=== PATIENT | female | born 1990 | race Caucasian/White ===

== ENCOUNTER 2022-03-11 13:57 | Outpatient (CLI) | payer OTHER | END 2022-03-11 13:58 | disposition home or self-care (01) | LOC: CSHLAB 13:57 | PROVIDERS: ATTEND Obstetrics & Gynecology | DX: Z20.822 Contact with and (suspected) exposure to COVID-19 (principal) | CPT/HCPCS: 87811 ==

== ENCOUNTER 2022-03-15 05:30 | Inpatient (IN) | payer OTHER ==
[2022-03-15] MEDS ORDERED: hydrALAZINE 20 MG/ML VIAL SLOW IVP PRN ×2 (05:56→14:07)
[2022-03-15] MEDS ORDERED: HYDROcodone/Acetaminophen 5/325 mg Tablet PO PRN ×3 (05:56→14:07)
[2022-03-15] MEDS ORDERED: Lidocaine 1% (PF) 30 ML VIAL SC PRN (05:56)
[2022-03-15] MEDS ORDERED: Ibuprofen 800 MG TAB PO PRN (05:56)
[2022-03-15] MEDS ORDERED: Ondansetron PF 4 MG/2 ML Vial IVP PRN ×3 (05:56→14:07)
[2022-03-15] MEDS ORDERED: Butorphanol Tartrate 1 MG/ML VIAL SLOW IVP PRN (05:56)
[2022-03-15] MEDS ORDERED: Promethazine HCl 25 MG/ML VIAL IM PRN ×2 (05:56→09:43)
[2022-03-15] MEDS ORDERED: NS w/ Oxytocin 30 units 500 ML IV SCH ×2 (06:00)
[2022-03-15 06:05] VITALS: BMI 32.5
[2022-03-15 06:33] LABS: Hemoglobin 10.1 g/dL (12.0-15.5); Mean Corpuscular Hemoglobin 24.9 pg (27.0-33.0); Mean Platelet Volume 10.6 fl (7.4-10.4); Platelet Count 260 10x3/uL (150-450); RBC Distribution Width 14.3 % (11.5-14.5); Red Blood Cell (RBC) Count 4.05 10x6/uL (3.90-5.03); White Blood Cell (WBC) Count 11.8 10x3/uL (3.5-10.5)
[2022-03-15 07:12] LABS: Hep B Surf Ag Non-Reactive S/CO (NonReactive)
[2022-03-15] MEDS ORDERED: Bupivacaine 0.25% HCL 30 ML VIAL ONE (08:00)
[2022-03-15 08:30] LABS: Syphilis Antibody Nonreactive (Nonreactive); Syphilis Antibody Index 0.04 S/CO (<1.00 Non-Reactive)
[2022-03-15] MEDS ORDERED: Fentanyl 2 mcg/Bup 0.1% Cadd 100 ML ONE (08:33)
[2022-03-15] MEDS ORDERED: Moisturizing Cream (Eucerin) 113 GM JAR TOP PRN (09:43)
[2022-03-15] MEDS ORDERED: ePHEDrine Sulfate 50 MG/10 ML VIAL SLOW IVP PRN (09:43)
[2022-03-15] MEDS ORDERED: Lactated Ringer's 500 ML IV PRN (09:43)
[2022-03-15] MEDS ORDERED: Acetaminophen 325 MG TAB PO PRN (09:43)
[2022-03-15] MEDS ORDERED: diphenhydrAMINE 50 MG/ML VIAL IVP PRN (09:43)
[2022-03-15] MEDS ORDERED: Naloxone HCl 0.4 mg/ml Vial IVP PRN ×2 (09:43)
[2022-03-15] MEDS ORDERED: Fentanyl 2 mcg/Bupivacaine 0.1% Cassette 100 ML EPIDURAL SCH (09:45)
[2022-03-15] MEDS ORDERED: Communication Order-Pharmacy FS SCH (09:45)
[2022-03-15] MEDS ORDERED: Preparation H Ointment 28 GM TUBE PR PRN (14:07)
[2022-03-15] MEDS ORDERED: Lanolin Ointment 7 GM TUBE TOP PRN (14:07)
[2022-03-15] MEDS ORDERED: Milk Of Magnesia 30 ML UDCUP PO PRN (14:07)
[2022-03-15] MEDS ORDERED: Boostrix 0.5 ML (Tdap) VIAL IM ONE (14:07)
[2022-03-15] MEDS ORDERED: Benzocaine-Menthol 82.5 ML CAN TOP PRN (14:07)
[2022-03-15] MEDS ORDERED: diphenhydrAMINE 25 MG CAP PO PRN (14:07)
[2022-03-15] MEDS ORDERED: Bisacodyl 10 MG SUPP PR PRN (14:07)
[2022-03-15] MEDS ORDERED: NS w/ Oxytocin 30 units 500 ML ONE (14:18)
[2022-03-15] MEDS: Ibuprofen 800 MG TAB PO SCH ×2 (14:28→22:17)
[2022-03-15] MEDS: Ferrous Sulfate 325 MG TAB PO SCH (15:29)
[2022-03-15] MEDS: Docusate 100 MG CAP PO SCH (22:17)
[2022-03-16] MEDS: HYDROcodone/Acetaminophen 5/325 mg Tablet PO PRN ×3 (01:10→16:19)
[2022-03-16] MEDS: Ibuprofen 800 MG TAB PO SCH ×2 (05:13→13:51)
[2022-03-16] MEDS: Docusate 100 MG CAP PO SCH (08:22)
[2022-03-16] MEDS: Ferrous Sulfate 325 MG TAB PO SCH ×2 (08:22→16:18)
[2022-03-16] MEDS ORDERED: Prenatal Vitamin 1 TAB PO SCH (09:00)
[2022-03-16 11:07] VITALS: BP 106/60; TEMP 98.5
== END 2022-03-16 17:25 | disposition home or self-care (01) | DRG 807 ==
LOC: CSHLD 05:50 → CSHPP 15:15
PROVIDERS: ADMIT Obstetrics & Gynecology; ATTEND Obstetrics & Gynecology
PROC: 10E0XZZ Delivery of Products of Conception, External Approach (ICD-10-PCS; principal; 2022-03-15)
PROC: 10907ZC Drainage of Amniotic Fluid, Therapeutic from Products of Conception, Via Natural or Artificial Opening (ICD-10-PCS; 2022-03-15)
PROC: 0HQ9XZZ Repair Perineum Skin, External Approach (ICD-10-PCS; 2022-03-15)
DX: O34.211 Maternal care for low transverse scar from previous cesarean delivery (principal); Z37.0 Single live birth; Z3A.39 39 weeks gestation of pregnancy; O24.429 Gestational diabetes mellitus in childbirth, unspecified control; Z88.1 Allergy status to other antibiotic agents; Z91.013 Allergy to seafood; O70.0 First degree perineal laceration during delivery; O69.81X0 Labor and delivery complicated by cord around neck, without compression, not applicable or unspecified
CPT/HCPCS: 36416; 51702; 85027; 86780; 86850; 86900; 86901; 87340; J2590; S0020